=== PATIENT | male | born 1990 | race Caucasian/White ===

== ENCOUNTER 2019-01-27 23:02 | Emergency (ER) | payer MEDICARE, OTHER ==
[2019-01-27 23:02] VITALS: BMI 27.2
[2019-01-27 23:19] VITALS: BP 127/76; PULSE 88; TEMP 97.8
--- NOTE | 2019-01-27 23:26 | ED PDOC ---
Arrival/HPI - General Chief Complaint: Cough, Cold, Congestion Time Seen by Provider: 01/27/19 23:03 Historian: Patient - History of Present Illness Narrative History of Present Illness (Text): 01/27/19 23:26 David Olsen is a 28 year old male, whose past medical history includes asthma, who presents to the ED complaining of a cough, nasal congestion, and wheezing. Patient states symptoms are consistent with his previous asthma symptoms. Patient states he was recently seen and treated for similar symptoms but denies any significant relief. Patient denies any fever, chills, chest pain, nausea, vomiting, diarrhea, urinary symptoms, back pain, neck pain, headache, dizziness, or any other complaints. Time/Duration: > week Symptom Onset: Gradual Symptom Course: Unchanged Activities at Onset: Light Context: Home Past Medical History - Provider Review Nursing Documentation Reviewed: Yes - Infectious Disease Hx of Infectious Diseases: None - Tetanus Immunization Tetanus Immunization: Unknown - Cardiac Hx Cardiac Disorders: No - Psychiatric Hx Depression: No Hx Emotional Abuse: No Hx Physical Abuse: No Hx Schizophrenia: Yes Hx Substance Use: No - Surgical History Hx Appendectomy: Yes - Anesthesia Hx Anesthesia: No Hx Anesthesia Reactions: No Hx Malignant Hyperthermia: No - Suicidal Assessment Feels Threatened In Home Enviroment: No Family/Social History - Physician Review Nursing Documentation Reviewed: Yes Family/Social History: Unknown Family HX Smoking Status: Never Smoked Hx Alcohol Use: No Hx Substance Use: No Allergies/Home Meds Allergies/Adverse Reactions: Allergies No Known Allergies Allergy (Verified 01/27/19 23:19) Home Medications: Home Meds Medication Instructions Recorded Confirmed Divalproex [Depakote DR(*BID*)] 1,000 mg PO HS 08/24/13 10/05/16 Haloperidol [Haldol] 5 mg PO HS 08/24/13 10/05/16 Benztropine [Cogentin] 2 mg PO DAILY 10/05/16 10/05/16 Sertraline HCl 50 mg PO DAILY 10/05/16 10/05/16 Review of Systems - Physician Review All systems were reviewed & negative as marked: Yes - Review of Systems Constitutional: Normal. absent: Fevers Eyes: Normal ENT: Other (+nasal congestion) Respiratory: Cough, Wheezing Cardiovascular: Normal. absent: Chest Pain Gastrointestinal: Normal. absent: Abdominal Pain, Diarrhea, Nausea, Vomiting Genitourinary Male: Normal. absent: Dysuria, Frequency, Hematuria, Urinary Output Changes Musculoskeletal: Normal. absent: Back Pain, Neck Pain Skin: Normal. absent: Rash Neurological: Normal. absent: Headache, Dizziness Endocrine: Normal Hemo/Lymphatic: Normal Psychiatric: Normal Physical Exam Vital Signs Reviewed: Yes Vital Signs Temp Pulse Resp BP Pulse Ox 01/27/19 23:19 97.8 F 88 16 127/76 96 Temperature: Afebrile Blood Pressure: Normal Pulse: Regular Respiratory Rate: Normal Appearance: Positive for: Well-Appearing, Non-Toxic, Comfortable Pain Distress: None Mental Status: Positive for: Alert and Oriented X 3 - Systems Exam Head: Present: Atraumatic, Normocephalic Pupils: Present: PERRL Extroacular Muscles: Present: EOMI Conjunctiva: Present: Normal Mouth: Present: Moist Mucous Membranes Neck: Present: Normal Range of Motion Respiratory/Chest: Present: Wheezes (Mild end-expiratory wheeze). No: Respiratory Distress, Accessory Muscle Use Cardiovascular: Present: Regular Rate and Rhythm, Normal S1, S2. No: Murmurs Abdomen: No: Tenderness, Distention, Peritoneal Signs Back: Present: Normal Inspection Upper Extremity: Present: Normal Inspection. No: Cyanosis, Edema Lower Extremity: Present: Normal Inspection. No: Edema Neurological: Present: GCS=15, CN II-XII Intact, Speech Normal Skin: Present: Warm, Dry, Normal Color. No: Rashes Psychiatric: Present: Alert, Oriented x 3, Normal Insight, Normal Concentration Medical Decision Making ED Course and Treatment: 01/27/19 23:26 Impression: 28 year old male complaining of wheezing, nasal congestion, and cough. Plan: -- Duoneb -- Reassess and disposition Progress Notes: - Scribe Statement The provider has reviewed the documentation as recorded by the Fac[facility] Lopez training under Maricruz Purvis All medical record entries made by the Scribe were at my direction and personally dictated by me. I have reviewed the chart and agree that the record accurately reflects my personal performance of the history, physical exam, medical decision making, and the department course for this patient. I have also personally directed, reviewed, and agree with the discharge instructions and disposition. Disposition/Present on Arrival - Present on Arrival Any Indicators Present on Arrival: No History of DVT/PE: No History of Uncontrolled Diabetes: No Urinary Catheter: No History of Decub. Ulcer: No History Surgical Site Infection Following: None - Disposition Have Diagnosis and Disposition been Completed?: Yes Diagnosis: Asthma, URI (upper respiratory infection) Disposition: HOME/ ROUTINE Disposition Time: 00:58 Patient Plan: Discharge Condition: GOOD Discharge Instructions (ExitCare): Asthma, Adult (DC), Viral Upper Respiratory Infection, Adult (DC) Additional Instructions: Take meds as prescribed/follow up with your doctor this week Prescriptions: Fexofenadine/Pseudoephedrine [Jayde-D 12 Hour Tablet] 1 each PO BID PRN #24 tab.er.12h PRN Reason: Nasal Congestion Albuterol HFA [Ventolin HFA 90 mcg/actuation (8 g)] 2 puff IH L4CDCTX PRN #1 puff PRN Reason: Wheezing Forms: [facility] ([place]), WORK NOTE
[2019-01-27] MEDS ORDERED: Albuterol-Ipratrop 3 mg / 0.5 (3 ml) UD IH STA (23:27)
[2019-01-27] MEDS ORDERED: Albuterol-Ipratrop 3 mg / 0.5 (3 ml) UD ONE (23:36)
[2019-01-28 09:23] VITALS: RESP 18; O2SAT 99
== END 2019-01-28 00:45 | disposition home or self-care (01) ==
LOC: ED 23:02
DX: J45.909 Unspecified asthma, uncomplicated (principal); J06.9 Acute upper respiratory infection, unspecified